=== PATIENT | female | born 1975 | race Asian ===

== ENCOUNTER 2022-01-28 15:51 | Emergency (ER) | payer BC, SELFPAY ==
--- NOTE | 2022-01-28 15:55 | ED.WOUNDLAC ---
HPI - Wound/Laceration General Chief Complaint: Wound/Laceration Stated Complaint: cat scratch Time Seen by Provider: 01/28/22 15:54 Source: patient Mode of arrival: ambulatory Limitations: no limitations History of Present Illness HPI narrative: Ms. Marx is a 46-year-old female patient presenting to the clinic today with complaints of a cat bite/scratches to the right arm and wrist. She states that this occurred last night while she was sleeping. States that her cat attacked her in the middle the night and bit her wrist and scratched her arm. She has Band-Aids covering these areas but is having some pain, redness, and swelling to the right wrist Related Data Allergies Allergy/AdvReac Type Severity Reaction Status Date / Time No Known Allergies Allergy Mild Verified 01/28/22 16:00 Review of Systems Review of Systems: Pertinent positives per HPI. Patient denies any fever, chills,headache, visual changes, dizziness, cough, runny nose, sore throat, shortness of breath, chest pain, palpitations, nausea, vomiting, diarrhea, constipation, abdominal pain, or any urinary issues. PMFSH Comments At the time of my signature, I reviewed and agree with the nursing past medical, surgical, social, and family history. There is no relevant family history pertinent to the patient complaint. Exam Narrative: General: Well-developed, well nourished, in no apparent distress Head: Normocephalic, atraumatic. Cardio: Regular rate and rhythm, s1 and s2 normal, no murmur appreciated. Resp: Clear to auscultation bilaterally, no rhonchi, rales, wheezing or rubs. Integumentary: [place], warm, and dry, intact without lesion, no rashes. Multiple cat scratches to the right distal forearm and wrist as well as has 1 puncture wound from a bite to her dorsal radial wrist. Induration redness and swelling noted around the radial wrist from the puncture wound with moderate tenderness to palpation. Course Course Emergency Course: Portions of this record may have been created with voice recognition software. Level of Care: Express Care Visit Vital Signs Vital signs: Vital signs reviewed MDM - Wound/Laceration MDM Narrative Medical decision making narrative: At the time of visit patient is resting comfortably on the exam table. She has multiple cat scratches to the right distal forearm and wrist as well as has 1 puncture wound from a bite to her dorsal radial wrist. Redness and swelling noted around puncture wound with tenderness to palpation. Mild induration noted. I will place patient on a course of Augmentin and update her tetanus in the clinic today. Wounds were washed with soap and water and antibiotic ointment was applied with Band-Aids. Supportive measures were discussed with the patient and discharge instructions were reviewed and she voiced understanding and agrees to the treatment plan. Differential Diagnosis Differential diagnosis: Likely other (Animal bite, scratches, cat bite, cat scratch) Discharge Plan Discharge Clinical Impression: Animal bite, Cat scratch Patient Disposition: Home, Self-Care Condition: Stable Instructions: Antibiotic Form, Animal Bite (ED), Cat Scratch Disease (ED) Additional Instructions: Tdap injection given in the clinic Augmentin 875 mg every 12 hours x 7 days Tylenol/Motrin as needed for pain or fever Wash wounds with soap and water and apply antibiotic ointment such as triple antibiotic ointment or bacitracin to the affected area Follow-up with your PCP in 3 to 5 days if symptoms persist or sooner if they worsen Prescriptions: New amoxicillin-pot clavulanate 875-125 mg tablet 1 tablet PO Q12H 7 Days Qty: 14 0RF Follow-up/Referrals: UNKNOWN,DOCTOR [Non-Staff] - Time of Disposition: 16:18 Quality NIHSS Nursing Documentation ED NIHSS nursing documentation: reviewed/agree
[2022-01-28 16:01] VITALS: BP 161/106; PULSE 114; RESP 16; TEMP 36.7; O2SAT 100
[2022-01-28] MEDS: TETANUS,DIPHTHERIA,AC PERTUSSIS ADULT (0.5 ML) BOOSTRIX IM (16:24)
== END 2022-01-28 16:43 | disposition home or self-care (01) ==
PROVIDERS: Emergency Provider Nurse Practitioner Family
DX: S50.811A Abrasion of right forearm, initial encounter (principal); S60.811A Abrasion of right wrist, initial encounter; W54.0XXA Bitten by dog, initial encounter; S61.531A Puncture wound without foreign body of right wrist, initial encounter; Z23 Encounter for immunization
CPT/HCPCS: 90471; 90715; 99203; G0463

== ENCOUNTER 2022-06-15 16:05 | Outpatient (CLI) | payer BC, SELFPAY ==
[2022-06-15 19:28] LABS: Alanine Aminotransferase 19 U/L (6-35); Albumin Level 4.6 g/dL (3.5-5.1); Alkaline Phosphatase 64 U/L (38-126); Anion Gap 10 mmol/L (8-16); Aspartate Amino Transferase 38 U/L (14-36); Bilirubin,Total 0.4 mg/dL (0.2-1.3); Blood Urea Nitrogen 15 mg/dL (7-17); Calcium 8.6 mg/dL (8.4-10.2); Carbon Dioxide 23 mmol/L (22-30); Chloride 105 mmol/L (98-107); Cholesterol 264 mg/dL (0-200); Estimated Glomerular Filt Rate > 60; Glucose 92 mg/dL (65-110); HDL Direct 79 mg/dL; Potassium 3.9 mmol/L (3.4-5.0); Sodium 138 mmol/L (137-145); Triglycerides 147 mg/dL (<150)
[2022-06-15 19:39] LABS: LDL Cholesterol Direct 132 mg/dL
[2022-06-15 20:01] LABS: MALB Creatinine Ratio 13.6 mg/g (0-30); Microalbumin Urine Random 17.6 mg/L (0-16.7)
[2022-06-15 20:15] LABS: Hemoglobin A1C 5.3 % (<5.7)
== END 2022-06-15 16:06 | disposition home or self-care (01) ==
LOC: ANHGOSHLAB 16:07
PROVIDERS: PCP Emergency Medicine; Visit Provider Emergency Medicine
DX: E66.9 Obesity, unspecified (principal); I10 Essential (primary) hypertension
CPT/HCPCS: 36415; 80053; 80061; 82043; 83036; 84443; 88142

== ENCOUNTER 2022-06-18 07:00 | Outpatient (NON) | payer BC, SELFPAY | END 2022-06-18 07:01 | disposition home or self-care (01) | PROVIDERS: PCP Emergency Medicine; Visit Provider Emergency Medicine | DX: Z00.00 Encounter for general adult medical examination without abnormal findings (principal) | CPT/HCPCS: 88142 ==